=== PATIENT | male | born 1975 | race African-American/Black ===

== ENCOUNTER 2018-05-11 16:46 | Emergency (ER) | payer MEDICAID, OTHER ==
[~2018-05-11] VITALS: Ht 188 cm; Wt 133.2 kg
[2018-05-11 18:56] LABS: HEMATOCRIT 44.7 % (42.0-52.0); HEMOGLOBIN 14.9 g/dl (13.5-17.5); MEAN CORPUSCULAR HGB CONC 33.3 g/dl (32.0-36.5); MEAN CORPUSCULAR VOLUME 87.1 fl (80.0-96.0); PLATELET COUNT, AUTOMATED 257 10^3/uL (150-450); RED BLOOD COUNT 5.13 10^6/uL (4.30-6.10); WHITE BLOOD COUNT 11.9 10^3/uL (4.0-10.0)
[2018-05-11 19:23] LABS: ATYPICAL LYMPH 3 % (0-5); BASOPHILS 3 % (0-4); EOSINOPHILS 3 % (0-5); LYMPHOCYTES 41 % (16-52); MONOCYTES 5 % (0-8); NEUTROPHILS 45 % (35-75); PLATELET ESTIMATE NORMAL (NORMAL)
[2018-05-11 19:31] LABS: ALBUMIN 3.7 GM/DL (3.2-5.2); ALT/SGPT 25 U/L (12-78); BILIRUBIN,DIRECT < 0.1 MG/DL (0.0-0.2); BILIRUBIN,TOTAL 0.3 MG/DL (0.2-1.0); BLOOD UREA NITROGEN 14 MG/DL (7-18); CALCIUM LEVEL 8.5 MG/DL (8.5-10.1); CARBON DIOXIDE LEVEL 30 MEQ/L (21-32); CHLORIDE LEVEL 104 MEQ/L (98-107); CREATININE FOR GFR 1.33 MG/DL (0.70-1.30); GLOMERULAR FILTRATION RATE > 60.0 (>60); GLUCOSE, FASTING 84 MG/DL (70-100); LIPASE 150 U/L (73-393); POTASSIUM SERUM 4.3 MEQ/L (3.5-5.1); SODIUM LEVEL 139 MEQ/L (136-145); TOTAL PROTEIN 7.6 GM/DL (6.4-8.2)
[2018-05-11 20:01] VITALS: BP 159/93
== END 2018-05-11 20:06 | disposition home or self-care (01) ==
LOC: M ED 16:46
DX: R19.7 Diarrhea, unspecified (principal)

== ENCOUNTER → 2018-05-12 | Outpatient (REF) | payer OTHER | LOC: M LAB REF 19:06 | PROVIDERS: ATTEND Emergency Medicine | DX: R19.7 Diarrhea, unspecified (principal) ==

== ENCOUNTER 2020-12-20 23:03 | Emergency (ER) | payer OTHER ==
[~2020-12-20] VITALS: Ht 190.5 cm; Wt 113.3 kg
[2020-12-20 23:04] VITALS: BP 140/82
--- OUTSIDE RECORDS SUMMARY | 2020-12-20 23:09 | CCD ---
Author Author [facility] Address Unknown Phone Unavailable Support Name Relationship Address Phone MADYSON JENKINS [place] [address] [place] [address] Unavailable UE Next Of Kin Unknown Unavailable ALESSANDRA ANGELES Next Of Kin [address] [place] [address] Re-disclosure Warning The records that you are about to access may contain information from federally-assisted alcohol or drug abuse programs. If such information is present, then the following federally mandated warning applies: This information has been disclosed to you from records protected by federal confidentiality rules (42 CFR part 2). The federal rules prohibit you from making any further disclosure of this information unless further disclosure is expressly permitted by the written consent of the person to whom it pertains or as otherwise permitted by 42 CFR part 2. A general authorization for the release of medical or other information is NOT sufficient for this purpose. The Federal rules restrict any use of the information to criminally investigate or prosecute any alcohol or drug abuse patient.The records that you are about to access may contain highly sensitive health information, the redisclosure of which is protected by Article 27-F of the [facility] Public Health law. If you continue you may have access to information: Regarding HIV / AIDS; Provided by facilities licensed or operated by the [facility] Office of Mental Health; or Provided by the [facility] Office for People With Developmental Disabilities. If such information is present, then the following [facility] mandated warning applies: This information has been disclosed to you from confidential records which are protected by state law. State law prohibits you from making any further disclosure of this information without the specific written consent of the person to whom it pertains, or as otherwise permitted by law. Any unauthorized further disclosure in violation of state law may result in a fine or longterm sentence or both. A general authorization for the release of medical or other information is NOT sufficient authorization for further disc losure. Medications No Information Insurance Providers Payer name Policy type / Coverage type Policy ID Covered green party ID Covered green party's relationship to jeff Policy Jeff Plan Information [facility] [id number] S 10 [id number] AETNA [facility] [id number] SP [id number] MEDICAID [id number] SP [id number] EVAN [id number] SP [id number] 200 SELF PAY UNAVAILABLE SP UNAVAILA BLE [facility] [id number] S [id number] AETNA [facility] [id number] SP [id number] Problems, Conditions, and Diagnoses No Information Surgeries/Procedures No Information Results No Information Social History No Information
--- OUTSIDE RECORDS SUMMARY | 2020-12-21 01:18 | CCD ---
Author Author [facility] Address Unknown Phone Unavailable Support Name Relationship Address Phone MADYSON JENKINS [place] [address] [place] [address] Unavailable UE Next Of Kin Unknown Unavailable ALESSANDRA ANGELES Next Of Kin [address] [place] [address] Re-disclosure Warning The records that [...] is protected by Article 27-F of the [facility] Public Health law. If you continue you may have access to information: Regarding HIV / AIDS; Provided by facilities licensed or operated by the [facility] Office of Mental Health; or Provided by the [facility] Office for People With Developmental Disabilities. If such information is present, then the following [facility] mandated warning applies: This information has been [...] type / Coverage type Policy ID Covered republican ID Covered republican's relationship to jeff Policy Jeff Plan Information [facility] [id number] S 10 [id number] AETNA [facility] [id number] SP [id number] MEDICAID [id number] SP [id number] EVAN [id number] SP [id number] 200 SELF PAY UNAVAILABLE SP UNAVAILA BLE [facility] [id number] S [id number] AETNA [facility] [id number] SP [id number] Problems, Conditions, and Diagnoses No Information Surgeries/Procedures No Information Results No Information Social History No Information
== END 2020-12-21 01:13 | disposition left against medical advice (07) ==
LOC: M ED 23:03
DX: Z53.29 Procedure and treatment not carried out because of patient's decision for other reasons (principal)

== ENCOUNTER 2020-12-21 02:49 | Emergency (ER) | payer OTHER ==
[~2020-12-21] VITALS: Ht 190.5 cm; Wt 113.3 kg
--- OUTSIDE RECORDS SUMMARY | 2020-12-21 02:56 | CCD ---
Author Author [facility] Organization [facility] Address Unknown Phone Unavailable Support Name Relationship Address Phone MADYSON JENKINS Next Of Kin - [place], [place] [id number] [place] [address] Unavailable UE Next Of Kin Unknown Unavailable ALESSANDRA ANGELES Next Of Kin [address] [place] [address] MADYSON JENKINS [facility] [place] [address] Unavailable Re-disclosure Warning The records that you are [...] is protected by Article 27-F of the [facility] Public Health law. If you continue you may have access to information: Regarding HIV / AIDS; Provided by facilities licensed or operated by the [facility] Office of Mental Health; or Provided by the [facility] Office for People With Developmental Disabilities. If such information is present, then the following [facility] mandated warning applies: This information has been [...] law may result in a fine or custodial sentence or both. A general authorization for the release of medical or other information is NOT sufficient authorization for further disc losure. Medications No Information Insurance Providers Payer name Policy type / Coverage type Policy ID Covered libertarian ID Covered libertarian's relationship to jeff Policy Jeff Plan Information [facility] [id number] S [id number] AETNA [facility] [id number] SP [id number] MEDICAID [id number] SP [id number] [facility] [id number] SP [id number] 200 SELF PAY UNAVAILABLE SP UNAVAILA BLE [facility] [id number] S [id number] AETNA [facility] [id number] Problems, Conditions, and Diagnoses No Information Surgeries/Procedures No Information Results No Information Social History No Information
[2020-12-21 05:27] VITALS: BP 134/90
--- OUTSIDE RECORDS SUMMARY | 2020-12-21 08:04 | CCD ---
Author Author [facility] Organization [facility] Address Unknown Phone Unavailable Support Name Relationship Address Phone MADYSON JENKINS Next Of Kin [place], [place] [id number] [place] [address] Unavailable UE Next Of Kin Unknown Unavailable ALESSANDRA ANGELES Next Of Kin [address] [place] [address] MADYSON JENKINS [facility] [place] [address] Unavailable Re-disclosure Warning The records that you [...] is protected by Article 27-F of the [facility] Public Health law. If you continue you may have access to information: Regarding HIV / AIDS; Provided by facilities licensed or operated by the [facility] Office of Mental Health; or Provided by the [facility] Office for People With Developmental Disabilities. If such information is present, then the following [facility] mandated warning applies: This information has been [...] law may result in a fine or [place] [facility] sentence or both. A general authorization for the release of medical or other information is NOT sufficient authorization for further disc losure. Medications No Information Insurance Providers Payer name Policy type / Coverage type Policy ID Covered alliance party ID Covered alliance party's relationship to jeff Policy Jeff Plan Information [facility] [id number] S [id number] AETNA [facility] [id number] SP [id number] MEDICAID [id number] SP [id number] [facility] [id number] SP [id number] 200 SELF PAY UNAVAILABLE SP UNAVAILA BLE [facility] [id number] S [id number] AETNA [facility] [id number] Problems, Conditions, and Diagnoses No Information Surgeries/Procedures No Information Results No Information Social History No Information
== END 2020-12-21 08:00 | disposition left against medical advice (07) ==
LOC: M ED 02:49
DX: Z53.21 Procedure and treatment not carried out due to patient leaving prior to being seen by health care provider (principal)

== ENCOUNTER 2020-12-23 14:06 | Emergency (ER) | payer OTHER ==
[~2020-12-23] VITALS: Ht 190.5 cm; Wt 115.0 kg
[2020-12-23 14:08] VITALS: BP 148/87
--- OUTSIDE RECORDS SUMMARY | 2020-12-23 14:15 | CCD ---
Author Author [facility] Organization [facility] Address Unknown Phone Unavailable Support Name Relationship Address Phone MADYSON JENKINS Next Of Kin - [place], [place] [id number] [place] [address] Unavailable UE Next Of Kin Unknown Unavailable ALESSANDRA ANGELES Next Of Kin [address] [place] [address] MADYSON JENKINS [facility] [address] Unavailable Re-disclosure Warning The records that you [...] is protected by Article 27-F of the [facility] Public Health law. If you continue you may have access to information: Regarding HIV / AIDS; Provided by facilities licensed or operated by the [facility] Office of Mental Health; or Provided by the [facility] Office for People With Developmental Disabilities. If such information is present, then the following [facility] mandated warning applies: This information has been [...] law may result in a fine or penitentiary sentence or both. A general authorization for the release of medical or other information is NOT sufficient authorization for further disc losure. Medications No Information Insurance Providers Payer name Policy type / Coverage type Policy ID Covered libertarian ID Covered libertarian's relationship to jeff Policy Jeff Plan Information [facility] [id number] S [id number] AETNA [facility] [id number] SP [id number] MEDICAID [id number] SP [id number] [facility] [id number] SP [id number] 200 SELF PAY UNAVAILABLE SP UNAVAILA BLE [facility] [id number] S [id number] AETNA [facility] [id number] Problems, Conditions, and Diagnoses No Information Surgeries/Procedures No Information Results No Information Social History No Information
--- OUTSIDE RECORDS SUMMARY | 2020-12-23 15:15 | CCD ---
Author Author [facility] Address Unknown Phone Unavailable Support Name Relationship Address Phone MADYSON JENKINS Next Of Kin - [place], [place] [id number] [place] [address] Unavailable UE Next Of Kin Unknown Unavailable ALESSANDRA ANGELES Next Of Kin [address] [place] [address] MADYSON JENKINS [facility] [place] [address] Unavailable Re-disclosure Warning The records that you [...] is protected by Article 27-F of the [facility] Public Health law. If you continue you may have access to information: Regarding HIV / AIDS; Provided by facilities licensed or operated by the [facility] Office of Mental Health; or Provided by the [facility] Office for People With Developmental Disabilities. If such information is present, then the following [facility] mandated warning applies: This information has been [...] law may result in a fine or group home sentence or both. A general authorization for the release of medical or other information is NOT sufficient authorization for further disc losure. Medications No Information Insurance Providers Payer name Policy type / Coverage type Policy ID Covered green party ID Covered green party's relationship to jeff Policy Jeff Plan Information [facility] [id number] S [id number] AETNA [facility] [id number] SP [id number] MEDICAID [id number] SP [id number] [facility] [id number] SP [id number] SELF PAY UNAVAILABLE SP [facility]ILA BLE [facility] [id number] S [id number] AETNA [facility] [id number] Problems, Conditions, and Diagnoses No Information Surgeries/Procedures No Information Results No Information Social History No Information
--- NOTE | 2020-12-23 16:11 | REP ---
INDICATION: hit in arm/pain COMPARISON: None. TECHNIQUE: AP, lateral, bilateral oblique views of the right elbow. FINDINGS: Arthritic changes are appreciated including spurring at the olecranon process. No acute fracture or dislocation is appreciated. Joint spaces and surrounding soft tissues appear relatively normal. Lateral view demonstrates normal positioning to the anterior and posterior fat pads without evidence for effusion/hemarthrosis. No subcutaneous emphysema or foreign body identified. IMPRESSION: Arthritic changes. No acute fracture or dislocation. <Electronically signed by Ayush Sanchez > 12/23/20 2318
[2020-12-23] MEDS ORDERED: NAPR-837 PO (16:51)
== END 2020-12-23 17:06 | disposition home or self-care (01) ==
LOC: M ED 14:06
DX: M77.11 Lateral epicondylitis, right elbow (principal)

== ENCOUNTER 2021-01-06 03:41 | Emergency (ER) | payer OTHER ==
[~2021-01-06] VITALS: Ht 190.5 cm; Wt 115.2 kg
[~2021-01-06 03:41] MED LIST: NAPR-837 PO
--- OUTSIDE RECORDS SUMMARY | 2021-01-06 03:49 | CCD ---
Author Author [facility] Address Unknown Phone Unavailable Support Name Relationship Address Phone MADYSON JENKINS Next Of Kin - [place], [place] [id number] [place] [address] Unavailable UE Next Of Kin Unknown Unavailable ALESSANDRA ANGELES Next Of Kin [address] [place] [address] MADYSON JENKINS [facility] [place] [address] Unavailable Re-disclosure Warning The records that you [...] is protected by Article 27-F of the [facility] Public Health law. If you continue you may have access to information: Regarding HIV / AIDS; Provided by facilities licensed or operated by the [facility] Office of Mental Health; or Provided by the [facility] Office for People With Developmental Disabilities. If such information is present, then the following [facility] mandated warning applies: This information has [...] sufficient authorization for further disc losure. Medications Medication Brand Name Start Date Product Form Dose Route Admi nistrative Instructions Pharmacy Instructions Status Indications Reaction Description Data Source(s) 500 mg 12/24/2020 12:00:00 AM EDT tablet 60 TAKE ONE TABLET BY MOUTH TWICE A DAY - TAKE WITH FOOD TAKE ONE TABLET BY MOUTH TWICE A DAY - TAKE WITH FOOD SOLD: 12/24/2020 [facility] Insurance Providers Payer name Policy type / Coverage type Policy ID Covered constitution party ID Covered constitution party's relationship to jeff Policy Jeff Plan Information [facility] [id number] S [id number] AETNA [facility] [id number] SP [id number] MEDICAID [id number] SP [id number] [facility] [id number] SP [id number] 200 SELF PAY UNAVAILABLE SP UNAVAILA BLE [facility] [id number] S [id number] AETNA [facility] [id number] SP [id number] Problems, Conditions, and Diagnoses No Information Surgeries/Procedures No Information Results No Information Social History No Information
--- OUTSIDE RECORDS SUMMARY | 2021-01-06 09:56 | CCD ---
Author Author [facility] Address Unknown Phone Unavailable Support Name Relationship Address Phone MADYSON JENKINS Next Of Kin - [place], [place] [id number] [place] [address] Unavailable UE Next Of Kin Unknown Unavailable ALESSANDRA ANGELES Next Of Kin [address] [place] [address] MADYSON JENKINS [facility] [place] [address] Unavailable Re-disclosure Warning The records that you [...] is protected by Article 27-F of the [facility] Public Health law. If you continue you may have access to information: Regarding HIV / AIDS; Provided by facilities licensed or operated by the [facility] Office of Mental Health; or Provided by the [facility] Office for People With Developmental Disabilities. If such information is present, then the following [facility] mandated warning applies: This information has [...] relationship to jeff Policy Jeff Plan Information [facility] [id number] S 10 [id number] AETNA [facility] [id number] SP [id number] MEDICAID [id number] SP [id number] [facility] [id number] SP [id number] 200 SELF PAY UNAVAILABLE SP UNAVAILA BLE [facility] [id number] S [id number] AETNA [facility] [id number] SP [id number] Problems, Conditions, and Diagnoses No Information Surgeries/Procedures No Information Results No Information Social History No Information
[2021-01-06 10:18] VITALS: BP 133/79
== END 2021-01-06 10:23 | disposition home or self-care (01) ==
LOC: M ED 03:41
DX: M77.11 Lateral epicondylitis, right elbow (principal)

== ENCOUNTER 2024-01-18 20:35 | Emergency (ER) | payer MEDICAID, OTHER ==
[~2024-01-18] VITALS: Ht 188 cm; Wt 145.7 kg
[2024-01-18] MEDS: LIDOCAINE 2% 5ML JELLY UROJET TOP ONE (21:50)
[2024-01-18] MEDS ORDERED: MACR100C43 PO (22:01)
[2024-01-18 23:02] VITALS: BP 131/71; TEMP 98.9; O2SAT 97
[2024-01-19] MEDS ORDERED: OXYB5TAB14 PO (01:34)
== END 2024-01-18 23:10 | disposition home or self-care (01) ==
LOC: M ED 20:35
DX: S37.39XA Other injury of urethra, initial encounter (principal); Y92.019 Unspecified place in single-family (private) house as the place of occurrence of the external cause; Y93.9 Activity, unspecified; Y99.9 Unspecified external cause status; F12.10 Cannabis abuse, uncomplicated; Z79.899 Other long term (current) drug therapy

== ENCOUNTER 2024-01-19 00:29 | Emergency (ER) | payer OTHER ==
[~2024-01-19] VITALS: Ht 188 cm; Wt 145.0 kg
[~2024-01-19 00:29] MED LIST changes: +MACR100C43 PO
[2024-01-19] MEDS: oxyBUTYnin 5 MG TAB PO ONE (00:59)
[2024-01-19] MEDS ORDERED: OXYB5TAB14 PO (01:34)
[2024-01-19 01:50] VITALS: BP 143/73; TEMP 99.4; O2SAT 96
== END 2024-01-19 01:56 | disposition home or self-care (01) ==
LOC: M ED 00:29
DX: R30.1 Vesical tenesmus (principal); Z79.899 Other long term (current) drug therapy

== ENCOUNTER 2025-02-07 21:03 | Emergency (ER) | payer OTHER ==
[~2025-02-07] VITALS: Ht 188 cm; Wt 142.0 kg
[~2025-02-07 21:03] MED LIST changes: +OXYB5TAB14 PO
[2025-02-07] MEDS: ACETAMINOPHEN *IV* 1,000 MG in IV 1 EA IV ONE (22:32)
[2025-02-07] MEDS: METHOCARBAMOL 1,000 MG/10 ML VIAL IV ONE (22:32)
[2025-02-07] MEDS: KETOROLAC 30 MG/ML 1 ML VIAL IV ONE (23:24)
[2025-02-08] MEDS ORDERED: NAPR-837 PO (00:21)
[2025-02-08] MEDS ORDERED: METH-1165 PO (00:21)
[2025-02-08 00:40] VITALS: BP 104/60; TEMP 97.5; O2SAT 97
== END 2025-02-08 00:41 | disposition home or self-care (01) ==
LOC: M ED 21:03
DX: S06.0X0A Concussion without loss of consciousness, initial encounter (principal); M54.50 Low back pain, unspecified; Y92.481 Parking lot as the place of occurrence of the external cause; Y93.9 Activity, unspecified; Y99.9 Unspecified external cause status; W01.0XXA Fall on same level from slipping, tripping and stumbling without subsequent striking against object, initial encounter; I10 Essential (primary) hypertension; E55.9 Vitamin D deficiency, unspecified; Z79.899 Other long term (current) drug therapy
CPT/HCPCS: 70450; 72125; 72128; 72131; 96365; 96366; 96375; 99284; J0134; J1885; J2800